=== PATIENT | male | born 1980 | race Native Hawaiian/Other Pacific Islander ===

== ENCOUNTER 2022-04-26 13:01 | Emergency (ER) | payer BC, SELFPAY ==
[2022-04-26 13:08] VITALS: BP 130/83; PULSE 62; TEMP 36.4; O2SAT 99; BMI 27.5
--- NOTE | 2022-04-26 13:35 | ED.GENADULT ---
HPI - General Adult General Time Seen by Provider: 13:35 Date Seen: 04/26/22 Chief complaint: Abdominal Pain Stated complaint: Abdominal pain Time Seen by Provider: 04/26/22 13:34 Source: patient and RN notes reviewed Mode of arrival: ambulatory Limitations: no limitations History of Present Illness HPI narrative: Patient is a 41-year-old male coming in with sudden onset of severe left-sided abdominal pain starting within the last couple hours. The pain was so severe it did cause him to vomit. He was working when it started, no trauma. He has no history of kidney stones. No associated urinary symptoms, no change in stool habits, no diarrhea. Pain is severe. It starts in the left mid abdomen and radiates paraumbilical E. he has no history of prior abdominal surgeries. There has been no fevers or chills. He has not been sick with any cough or cold symptoms. Last ate at 8:00 a.m. this morning. Related Data Home Medications Medication Instructions Recorded Confirmed No Known Home Medications 04/26/22 04/26/22 Allergies Allergy/AdvReac Type Severity Reaction Status Date / Time No Known Drug Allergies Allergy Verified 04/26/22 13:11 Review of Systems Status of ROS: Reports: 10 or more systems reviewed and unremarkable except as noted in History and below PFSH PFS Social History Smoking Status: Never smoker How often do you have a drink containing alcohol: never AUDIT-C Alcohol total score: 0 Non-prescribed substance use: denies use Exam Const: Vital Signs, click to edit/add: Vital Signs - 24 hr 04/26/22 13:08 04/26/22 14:27 Temperature 97.6 F 98.1 F Pulse Rate [Pulse Oximeter] 62 73 Respiratory Rate 16 Blood Pressure [Ri ght Upper Arm] 130/83 116/77 Pulse Oximetry 99 97 Oxygen Delivery Me thod Room Air Room Air Documenting provider has reviewed patient's vital signs: yes Common normals: no apparent distress, average body habitus, oriented x3, no limitations, healthy appearing, alert and well nourished General appearance: cooperative, well kempt and in distress (Seems uncomfortable from the pain, has his eyes closed, hangs on to L abd) moderate HENMT: Common normals: normocephalic, head/scalp atraumatic, hearing grossly normal bilaterally, external nose normal, nasal mucous membranes and turbinates normal, moist oral mucous membranes, oropharynx normal, dentition normal and gingiva normal Head and scalp: normocephalic and atraumatic Nose: external nose normal and nasal mucous membranes and turbinates normal Eye: Common normals: PERRL, EOMs intact bilaterally, conjunctivae normal and no scleral icterus Conjunctiva: conjunctiva(e) normal Pupil: PERRL Neck & C-Spine: Common normals: full ROM, no lymphadenopathy, supple, no meningeal signs, no JVD and thyroid normal Thyroid: thyroid normal Resp: Common normals: normal respiratory effort, no retractions, no use of accessory muscles and clear to auscultation bilaterally Auscultation: clear to auscultation bilaterally Cardio: Common normals: no JVD, regular rate, regular rhythm, S1 normal heart sound, S2 normal heart sound, no gallops, no clicks and no murmurs Rate: regular rate Rhythm: regular rhythm Heart sounds: S1 normal and S2 normal GI: Common normals: Normal to inspection, nondistended, normoactive bowel sounds present, soft to palpation, no hepatosplenomegaly, no masses and no bruits Palpation: soft, tender (Left mid abdomen and periumbilically.) and no hepatosplenomegaly : Common normals: no CVA tenderness Bladder/kidney exam: no CVA tenderness Back & Pelvis: Common normals: no CVA tenderness Extremity: Common normals: normal to inspection, full ROM, normal capillary refill, no joint enlargement, no clubbing, cyanosis or edema, no calf tenderness and no pedal edema Neuro: Raciel Coma Scale: document GCS findings Raciel coma scale eye opening: Spontaneous (4) Saffell coma scale verbal response: Orientated (5) Raciel coma scale motor response: Obey commands (6) Saffell coma scale total score: 15 Common normals: oriented x3 Sensorium/orientation: alert Meningeal signs: no meningeal signs Speech: speech normal Psych: Appearance: well kempt Course Course Hospital Course: We will establish an IV, start IV fluids in given 15 mg IV Toradol and 4 mg IV Zofran for symptom control. Will obtain CT noncontrast as I a suspect urinary etiologies such as kidney stones most likely. We can always reimage with IV contrast if need be. Will get basic metabolic panel and CBC, consider further chemistries better analyzer is supposed to be going down and thus may not be able to get these for hours any ways. We will obtain urinalysis from him. Reevaluation(s) Reevaluation #1: Reviewed with patient normal laboratory workup as well as CT imaging. He states he still feeling it and now points over on the right side of his abdomen. I did have him sit up and lean back down. Seems to be worse with palpation of his abdominal wall. He was working outside yesterday but was inside today. This seems to be more abdominal wall based on a normal workup and my re-evaluation of him. We will send him home with some Toradol from [facility]. Time: 16:43 Vital Signs Vital signs: Initial Vital Signs Temperature 97.6 F 04/26/22 13:08 Temperature Source Temporal Artery Scan 04/26/22 13:08 Pulse Rate 62 04/26/22 13:08 Blood Pressure 130/83 04/26/22 13:08 Blood Pressure Mean 98 04/26/22 13:08 Blood Pressure Position Supine 04/26/22 13:08 Pulse Oximetry 99 04/26/22 13:08 Oxygen Delivery Method 04/26/22 13:08 Vital Signs Temperature 97.6 F 04/26/22 13:08 Pulse Rate 62 04/26/22 13:08 Blood Pressure 130/83 04/26/22 13:08 Pulse Oximetry 99 04/26/22 13:08 Oxygen Delivery Method 04/26/22 13:08 Temperature 98.1 F 04/26/22 14:27 Pulse Rate 73 04/26/22 14:27 Respiratory Rate 16 04/26/22 14:27 Blood Pressure 116/77 04/26/22 14:27 Pulse Oximetry 97 04/26/22 14:27 Oxygen Delivery Method 04/26/22 14:27 Medical Decision Making Lab Data Lab results reviewed: Yes I reviewed the patient's lab results Labs: Lab Results 04/26/22 04/26/22 04/26/22 Range/Units 13:27 13:27 14:16 WBC 8.73 (4.50-11.00) K/uL RBC 5.09 (4.30-5.90) m/uL Hgb 15.9 (13.5-17.5) gm/dL Hct 45.1 (37.0-53.0) % MCV 89 (80-100) fL MCH 31 (26-34) pg MCHC 35 (32-36) gm/dL RDW Coeff of Bret 12.4 (11.5-15.5) % Plt Count 261 (140-440) K/uL Neut % (Auto) 78.9 H (42.0-72.0) % Lymph % (Auto) 14.9 L (20-44) % [place] % (Auto) 4.8 (0.0-11.0) % Eos % (Auto) 0.6 (0.0-7.0) % Baso % (Auto) 0.6 (0.0-3.0) % Neut # (Auto) 6.90 (1.7-7.0) K/uL Lymph # (Auto) 1.30 (0.90-2.90) K/uL [place] # (Auto) 0.40 (0.00-0.90) K/UL Eos # (Auto) 0.05 (0.00-0.50) K/uL Baso # (Auto) 0.05 (0.00-0.30) K/uL Abs Immat Gran (auto) 0.02 (0.00-0.30) K/uL Sodium 137 (135-149) mmol/L Potassium 3.9 (3.6-5.1) mmol/L Chloride 100 (96-114) mmol/L Carbon Dioxide 25 (20-32) mmol/L BUN 21 (5-24) mg/dL Creatinine 1.0 (0.5-1.5) mg/dL Estimated Creat Clear 97.21 Estimated GFR 97 ml/min Glucose 111 (60-115) mg/dL Lactate (0.5-1.9) mmol/L Calcium 9.1 (8.4-10.6) mg/dL Total Bilirubin (0.1-1.5) mg/dL Direct Bilirubin (0.0-0.5) mg/dL AST (12-35) U/L ALT (4-50) U/L Alkaline Phosphatase (40-150) U/L C-Reactive Protein (0.5-1.0) mg/dL Total Protein (6.0-8.3) g/dL Albumin (3.3-5.0) g/dL Lipase (23-300) U/L Urine Color Yellow (Yellow) Urine Appearance Clear (Clear) Urine pH 7.0 (5.0-8.5) Ur Specific [place] 1.025 (1.000-1.030) Urine Protein Negative (Negative) Urine Glucose (UA) Negative (Negative) Urine Ketones 2+ A (Negative) Urine Blood Negative (Negative) Urine Nitrite Negative (Negative) Urine Bilirubin Negative (Negative) Urine Urobilinogen 0.2 (0.2-1.0) Ur Leukocyte Esterase Negative (Negative) Urine RBC 0-2 (0-2) Urine WBC 0-2 (0-5) Urine WBC Clumps None (None) Ur Squamous Epith Cells None (None-Few) Urine Bacteria None (None) 04/26/22 04/26/22 Range/Units 14:55 14:55 WBC (4.50-11.00) K/uL RBC (4.30-5.90) m/uL Hgb (13.5-17.5) gm/dL Hct (37.0-53.0) % MCV (80-100) fL MCH (26-34) pg MCHC (32-36) gm/dL RDW Coeff of Bret (11.5-15.5) % Plt Count (140-440) K/uL Neut % (Auto) (42.0-72.0) % Lymph % (Auto) (20-44) % [place] % (Auto) (0.0-11.0) % Eos % (Auto) (0.0-7.0) % Baso % (Auto) (0.0-3.0) % Neut # (Auto) (1.7-7.0) K/uL Lymph # (Auto) (0.90-2.90) K/uL [place] # (Auto) (0.00-0.90) K/UL Eos # (Auto) (0.00-0.50) K/uL Baso # (Auto) (0.00-0.30) K/uL Abs Immat Gran (auto) (0.00-0.30) K/uL Sodium (135-149) mmol/L Potassium (3.6-5.1) mmol/L Chloride (96-114) mmol/L Carbon Dioxide (20-32) mmol/L BUN (5-24) mg/dL Creatinine (0.5-1.5) mg/dL Estimated Creat Clear Estimated GFR ml/min Glucose (60-115) mg/dL Lactate 0.7 (0.5-1.9) mmol/L Calcium (8.4-10.6) mg/dL Total Bilirubin 0.9 (0.1-1.5) mg/dL Direct Bilirubin 0.2 (0.0-0.5) mg/dL AST 57 H (12-35) U/L ALT 51 H (4-50) U/L Alkaline Phosphatase 85 (40-150) U/L C-Reactive Protein < 0.5 L (0.5-1.0) mg/dL Total Protein 7.4 (6.0-8.3) g/dL Albumin 4.4 (3.3-5.0) g/dL Lipase 67 (23-300) U/L Urine Color (Yellow) Urine Appearance (Clear) Urine pH (5.0-8.5) Ur Specific [place] (1.000-1.030) Urine Protein (Negative) Urine Glucose (UA) (Negative) Urine Ketones (Negative) Urine Blood (Negative) Urine Nitrite (Negative) Urine Bilirubin (Negative) Urine Urobilinogen (0.2-1.0) Ur Leukocyte Esterase (Negative) Urine RBC (0-2) Urine WBC (0-5) Urine WBC Clumps (None) Ur Squamous Epith Cells (None-Few) Urine Bacteria (None) Imaging Data CT scan - abdomen: Attestation: I have reviewed the pertinent imaging results. Radiologist's impression: Patient: LUIS MANUEL MELTON Facility:?[facility] Patient ID:?[id number] Site Patient ID:?[id number]. Site :?[id number] Study:?CT Abdomen/Pelvis WITHOU-04/26/2022 2:19:40 PM Ordering Physician:Sruthi Milton Final Report: INDICATION: Severe left lower quadrant pain. Nausea vomiting. COMPARISON: None TECHNIQUE: CT examination of the abdomen and pelvis was performed without intravenous contrast. Thin section axial images were obtained from the lung bases through the pubic symphysis. Oral contrast was not administered. Please note that all CT scans at this facility use dose modulation, iterative reconstruction, and/or weight-based dosing when appropriate to reduce radiation dose to as low as reasonably achievable. FINDINGS: LUNG BASES: The lung bases as visualized appear normal.The heart size is normal at the lung bases. LIVER/BILIARY SYSTEM:The liver is normal in size and configuration given the lack of intravenous contrast. There is no visible focal mass and there is no intra- or extra hepatic biliary ductal dilatation.The gall bladder appears normal. ADRENALS: Normal non-contrast appearance KIDNEYS, URETERS and BLADDER:The kidneys appear normal given lack of intravenous contrast. No visible mass, calculus or hydronephrosis. The ureters and bladder as visualized appear normal. SPLEEN:Normal non-contrast appearance. PANCREAS: Normal non-contrast appearance. RETROPERITONEUM and MESENTERY: There is no mass, adenopathy or aortic aneurysm. GASTROINTESTINAL SYSTEM: There are areas of colonic wall thickening but this appears as submucosal fat deposition. This is usually not associated with an acute inflammatory process. No surrounding pericolonic inflammatory change. No specific GI cause for left-sided pain. PELVIS: No mass, adenopathy or free fluid. OSSEOUS STRUCTURES and ABDOMINAL WALL: There is an age-appropriate appearance of the osseous structures.No significant abdominal wall defect. OTHER: No free fluid or free air. IMPRESSION: No specific visible cause for pain. Please note that all CT scans at this facility use dose modulation, iterative reconstruction, and/or weight-based dosing when appropriate to reduce radiation dose to as low as reasonably achievable. Dictated by Dillon Mckeon MD @ 04/26/2022 2:40:25 PM (Electronic Signature) Critical Care Time Critical Care Time Critical Care Time: No Discharge Plan Discharge Clinical Impression: Abdominal pain Patient Disposition: Home, Self-Care Condition: Stable Instructions: Abdominal Pain (ED) Additional Instructions: Activity and oral intake as symptoms allow. Can use Tylenol baseline per bottle directions for pain control. Have also given a prescription for Toradol, 10 mg every 6 hours as needed for pain. Can use this as well as Tylenol for extra pain control. If you develops severe abdominal pain again, have any vomiting or fevers associated with abdominal pain, do need to seek re-evaluation. I do wonder if this is more abdominal wall pain for you and was maybe more of muscle contraction/muscle spasm. Drinking plenty of fluids, consider drinking some Gatorade if working outside in the heat as this may help prevent muscular contractions/spasms. Activity Level: Activity as Tolerated Discharge Diet: Regular Prescriptions: No Action No Known Home Medications Follow Up/Referrals: Provider,Not a Local [Primary Care Provider] - Stand Alone Forms: [facility] Info Instructions
--- NOTE | 2022-04-26 13:38 | CRLHL7_ITS ---
For Patients: As a result of the Century Cures Act, medical imaging exams and procedure reports are released immediately into your electronic medical record. You may view this report before your referring provider. If you have questions, please contact your health care provider. INDICATION: Severe left lower quadrant pain. Nausea vomiting. COMPARISON: None TECHNIQUE: CT examination of the abdomen and pelvis was performed without intravenous contrast. Thin section axial images were obtained from the lung bases through the pubic symphysis. Oral contrast was not administered. Please note that all CT scans at this facility use dose modulation, iterative reconstruction, and/or weight-based dosing when appropriate to reduce radiation dose to as low as reasonably achievable. FINDINGS: LUNG BASES: The lung bases as visualized appear normal.The heart size is normal at the lung bases. LIVER/BILIARY SYSTEM:The liver is normal in size and configuration given the lack of intravenous contrast. There is no visible focal mass and there is no intra- or extra hepatic biliary ductal dilatation.The gall bladder appears normal. ADRENALS: Normal non-contrast appearance KIDNEYS, URETERS and BLADDER:The kidneys appear normal given lack of intravenous contrast. No visible mass, calculus or hydronephrosis. The ureters and bladder as visualized appear normal. SPLEEN:Normal non-contrast appearance. PANCREAS: Normal non-contrast appearance. RETROPERITONEUM and MESENTERY: There is no mass, adenopathy or aortic aneurysm. GASTROINTESTINAL SYSTEM: There are areas of colonic wall thickening but this appears as submucosal fat deposition. This is usually not associated with an acute inflammatory process. No surrounding pericolonic inflammatory change. No specific GI cause for left-sided pain. PELVIS: No mass, adenopathy or free fluid. OSSEOUS STRUCTURES and ABDOMINAL WALL: There is an age-appropriate appearance of the osseous structures.No significant abdominal wall defect. OTHER: No free fluid or free air. IMPRESSION: No specific visible cause for pain. Please note that all CT scans at this facility use dose modulation, iterative reconstruction, and/or weight-based dosing when appropriate to reduce radiation dose to as low as reasonably achievable. Dictated by Dillon Mckeon MD @ 04/26/2022 2:40:25 PM (Electronically Signed)
[2022-04-26] MEDS: KETOROLAC 15 MG/ML inj IVP (13:49)
[2022-04-26] MEDS: ONDANSETRON 2 MG/ML inj 4 MG IVP (13:49)
[2022-04-26] MEDS: 0.9 % SODIUM CHLORIDE 1000 ml 1,000 ML 500 ML IV (13:51)
[2022-04-26 13:54] LABS: Basophils Absolute Auto 0.05 K/uL (0.00-0.30); Basophils Percent Auto 0.6 % (0.0-3.0); Eosinophils Absolute Auto 0.05 K/uL (0.00-0.50); Eosinophils Percent Auto 0.6 % (0.0-7.0); Hematocrit 45.1 % (37.0-53.0); Hemoglobin* 15.9 gm/dL (13.5-17.5); Immature Granulocytes Abs Auto 0.02 K/uL (0.00-0.30); Lymphocytes Percent Auto 14.9 % (20-44); Mean Corpuscular HGB Conc 35 gm/dL (32-36); Mean Corpuscular Hemoglobin 31 pg (26-34); Mean Corpuscular Volume 89 fL (80-100); Monocytes Percent Auto 4.8 % (0.0-11.0); Neutrophils Percent Auto 78.9 % (42.0-72.0); Platelet Count* 261 K/uL (140-440); RDW Coefficient of Variation % 12.4 % (11.5-15.5); Red Blood Count 5.09 m/uL (4.30-5.90); White Blood Count* 8.73 K/uL (4.50-11.00)
[2022-04-26 13:55] LABS: Slide Review Reflex No
[2022-04-26 14:14] LABS: Chloride* 100 mmol/L (96-114)
[2022-04-26 14:15] LABS: Potassium* 3.9 mmol/L (3.6-5.1); Sodium* 137 mmol/L (135-149)
[2022-04-26 14:17] LABS: Est. Creatinine Clearance* 97.21; Estimated Glomerular Filt Rate 97 ml/min
[2022-04-26 14:18] LABS: Blood Urea Nitrogen* 21 mg/dL (5-24); Calcium* 9.1 mg/dL (8.4-10.6); Carbon Dioxide* 25 mmol/L (20-32); Glucose* 111 mg/dL (60-115)
[2022-04-26 14:27] VITALS: BP 116/77; PULSE 73; RESP 16; TEMP 36.7; O2SAT 97
[2022-04-26 14:52] LABS: Appearance Urine Clear (Clear); Bilirubin Urine Negative (Negative); Blood Urine Negative (Negative); Color Urine Yellow (Yellow); Glucose Urine Negative (Negative); Ketones Urine 2+ (Negative); Leukocyte Esterase Urine Negative (Negative); Nitrite Urine Negative (Negative); Protein Urine Negative (Negative); Specific Gravity Urine 1.025 (1.000-1.030); Urobilinogen Urine 0.2 (0.2-1.0)
[2022-04-26 15:02] LABS: Lactate* 0.7 mmol/L (0.5-1.9)
[2022-04-26 15:04] LABS: RBC Urine 0-2 (0-2); WBC Urine 0-2 (0-5)
[2022-04-26 15:18] LABS: Albumin* 4.4 g/dL (3.3-5.0)
[2022-04-26 15:21] LABS: Bilirubin Direct* 0.2 mg/dL (0.0-0.5); Bilirubin Total* 0.9 mg/dL (0.1-1.5)
[2022-04-26 15:22] LABS: Alanine Aminotransferase* 51 U/L (4-50); Alkaline Phosphatase* 85 U/L (40-150); Aspartate Amino Transferase* 57 U/L (12-35); Lipase* 67 U/L (23-300); Total Protein* 7.4 g/dL (6.0-8.3)
[2022-04-26 15:26] LABS: C Reactive Protein* < 0.5 mg/dL (0.5-1.0)
== END 2022-04-26 17:01 | disposition home or self-care (01) ==
PROVIDERS: Emergency Provider Family Medicine
DX: R10.9 Unspecified abdominal pain (principal)
CPT/HCPCS: 36415; 74176; 80048; 80076; 81001; 83605; 83690; 85025; 86140; 96374; 96375; 99284; J1885; J2405; J7030

== ENCOUNTER 2022-08-29 06:59 | Outpatient (CLI) | payer BC, SELFPAY ==
[2022-08-29 09:34] LABS: Cholesterol* 202 mg/dL (90-199)
[2022-08-29 09:35] LABS: HDL Cholesterol* 39 mg/dL (>=40); LDL Cholesterol Calculated 120 mg/dL (<100); Triglycerides* 216 mg/dL (40-149)
== END 2022-08-29 07:00 | disposition home or self-care (01) ==
PROVIDERS: Visit Provider Family Medicine
DX: Z13.6 Encounter for screening for cardiovascular disorders (principal)
CPT/HCPCS: 80053; 80061

== ENCOUNTER 2022-09-18 08:43 | Outpatient (CLI) | payer BC, SELFPAY ==
[2022-09-18 10:43] LABS: Aspartate Amino Transferase* 27 U/L (12-35)
[2022-09-18 10:44] LABS: Alanine Aminotransferase* 32 U/L (4-50)
== END 2022-09-18 08:44 | disposition home or self-care (01) ==
PROVIDERS: Visit Provider Family Medicine
DX: R79.89 Other specified abnormal findings of blood chemistry (principal)
CPT/HCPCS: 84450; 84460

== ENCOUNTER 2023-05-06 05:21 | Day surgery (SDC) | payer SELFPAY ==
[2023-05-06] VITALS (19 sets, daily range): BP systolic 100–129; BP diastolic 62–92; PULSE 62–84; RESP 14–18; TEMP 36.1–37.3; O2SAT 91–98; BMI 28.8; BMI 29.0
[2023-05-06] MEDS: ONDANSETRON 2 MG/ML inj 4 MG IVP (05:45)
[2023-05-06] MEDS: KETOROLAC 15 MG/ML inj IVP (05:45)
--- NOTE | 2023-05-06 05:47 | ED.GENADULT ---
HPI - General Adult General Chief complaint: Abdominal Pain Stated complaint: abdominal pain Time Seen by Provider: 05/06/23 05:26 Source: patient Mode of arrival: ambulatory Limitations: no limitations History of Present Illness HPI narrative: 42-year-old male with no chronic medical problems, known to me from his [employer] business presents with right lower quadrant abdominal pain for the past couple of hours. Pain is achy and constant. No trauma or injury. Pain is located in the right lower quadrant, does not radiate. No dysuria, no back pain. No rash. Last bowel movement was yesterday, formed and normal. No bloody stools. Did vomit x1 prior to coming to ED. he thinks that he may have had kidney stones 4 months ago when he was seen in the ED. review of the records shows that he was evaluated 1 year ago, had CT for suspected kidney stone but was found to have no etiology. Abdominal wall pain with suspected based on occupational hazards. He denies any new sexual partners or risk factors for STDs. No fever. No other systemic symptoms. Did not try taking any medications prior to coming to ED. no prior history of abdominal surgeries or obstructions. Past medical history notable for anxiety, takes Lexapro with good results. Rare alcohol, does not smoke. No pertinent travel. ROS notable for the right lower quadrant abdominal pain as described above only, otherwise denies times 12 systems. Related Data Home Medications Medication Instructions Recorded Confirmed No Known Home Medications 05/06/23 05/06/23 Allergies Allergy/AdvReac Type Severity Reaction Status Date / Time No Known Drug Allergies Allergy Verified 05/06/23 07:25 [facility] Social History Smoking Status: Never smoker How often do you have a drink containing alcohol: never AUDIT-C Alcohol total score: 0 Non-prescribed substance use: denies use Little interest or pleasure in doing things: several days Feeling down, depressed, or hopeless: several days Exam Const: Vital Signs, click to edit/add: Vital Signs - 24 hr 05/06/23 05:25 05/06/23 05:45 Temperature 98.1 F 98.1 F Pulse Rate [Right Pulse Oximeter] 74 Respiratory Rate 18 Blood Pressure [Ri ght Upper Arm] 119/81 Pulse Oximetry 98 Oxygen Delivery Me thod Room Air Documenting provider has reviewed patient's vital signs: yes Common normals: no apparent distress General appearance: cooperative HENMT: Common normals: normocephalic Head and scalp: normocephalic Face and sinus: normal facial exam Mouth: oral and palatal mucosa normal Eye: Common normals: conjunctivae normal General eye: normal appearance of both eyes Conjunctiva: conjunctiva(e) normal Neck & C-Spine: Common normals: no lymphadenopathy Resp: Common normals: normal respiratory effort, no use of accessory muscles and clear to auscultation bilaterally Effort & inspection: able to speak in complete sentences Auscultation: clear to auscultation bilaterally Cardio: Common normals: regular rate, regular rhythm, S1 normal heart sound, S2 normal heart sound and no murmurs Rate: regular rate Rhythm: regular rhythm Heart sounds: S1 normal and S2 normal GI: Common normals: Normal to inspection, nondistended, normoactive bowel sounds present and soft to palpation Palpation: soft Other: Tender to right lower quadrant with no rebound tenderness or guarding. : Common normals: no CVA tenderness Bladder/kidney exam: no CVA tenderness Back & Pelvis: Common normals: no CVA tenderness and thoracic and lumbar spine normal to inspection Extremity: Common normals: normal capillary refill General: normal exam except as noted Neuro: Speech: speech normal Gait (neuro): normal gait Motor exam: no movement abnormalities noted Psych: Activity/motor behavior: appropriate eye contact Mood and affect: euthymic mood Insight: insight good Judgement: judgment good Skin: Common normals: no rashes or lesions noted General skin exam: no rashes or lesions noted Course Course ED Course: Differential diagnosis including kidney stone, urinary infection, appendicitis, pancreatitis, colitis, musculoskeletal etiology, shingles, among others. Will start with urinalysis, most suspicious for appendicitis. Basic labs for intra-abdominal and generalized sources. Anticipate CT scan, based on urinalysis will decide with or without contrast dye. Will start with Toradol 15 mg IV x1 with Zofran and IV saline lock. Reevaluation(s) Time of Reevaluation #1: 07:53 Reevaluation #1: Improvement of pain with Toradol. Reviewed CT findings of appendicitis with patient. Call made to Dr. Grace, surgeon on-call. She is in a procedure but the nurse will pass along the message. Will start IV fluids and make the patient NPO for planned appendectomy. Reevaluation #2: Spoke with surgeon on-call. She recommends starting Zosyn. Planning for surgery around noon. Patient will be made NPO. Bolus LR, LR maintenance after. Passing along care to incoming day shift partner Vital Signs Vital signs: Initial Vital Signs Temperature 98.1 F 05/06/23 05:25 Temperature Source Temporal Artery Scan 05/06/23 05:25 Pulse Rate 74 05/06/23 05:25 Respiratory Rate 18 05/06/23 05:25 Blood Pressure 119/81 05/06/23 05:25 Blood Pressure Mean 93 05/06/23 05:25 Blood Pressure Position Sitting 05/06/23 05:25 Pulse Oximetry 98 05/06/23 05:25 Oxygen Delivery Method Room Air 05/06/23 05:25 Vital Signs Temperature 98.1 F 05/06/23 05:25 Pulse Rate 74 05/06/23 05:25 Respiratory Rate 18 05/06/23 05:25 Blood Pressure 119/81 05/06/23 05:25 Pulse Oximetry 98 05/06/23 05:25 Oxygen Delivery Method Room Air 05/06/23 05:25 Temperature 98.1 F 05/06/23 05:45 Pulse Rate 74 05/06/23 05:25 Respiratory Rate 18 05/06/23 05:25 Blood Pressure 119/81 05/06/23 05:25 Pulse Oximetry 98 05/06/23 05:25 Oxygen Delivery Method Room Air 05/06/23 05:25 Medical Decision Making Lab Data Lab results reviewed: Yes I reviewed the patient's lab results Lab results narrative: Mild leukocytosis, normal CRP. Labs: Lab Results 05/06/23 05/06/23 Range/Units 05:43 05:45 WBC 13.14 H (4.50-11.00) K/uL RBC 5.21 (4.30-5.90) m/uL Hgb 16.0 (13.5-17.5) gm/dL Hct 46.4 (37.0-53.0) % MCV 89 (80-100) fL MCH 31 (26-34) pg MCHC 35 (32-36) gm/dL RDW Coeff of Bret 12.6 (11.5-15.5) % Plt Count 231 (140-440) K/uL Neut % (Auto) 80.4 H (42.0-72.0) % Lymph % (Auto) 13.9 L (20-44) % [place] % (Auto) 4.0 (0.0-11.0) % Eos % (Auto) 1.3 (0.0-7.0) % Baso % (Auto) 0.2 (0.0-3.0) % Neut # (Auto) 10.60 H (1.7-7.0) K/uL Lymph # (Auto) 1.80 (0.90-2.90) K/uL [place] # (Auto) 0.50 (0.00-0.90) K/UL Eos # (Auto) 0.20 (0.00-0.50) K/uL Baso # (Auto) 0.00 (0.00-0.30) K/uL Abs Immat Gran (auto) 0.00 (0.00-0.30) K/uL Imm/Tot Granulo (auto) 0.2 % Sodium 137 (135-149) mmol/L Potassium 3.9 (3.6-5.1) mmol/L Chloride 105 (96-114) mmol/L Carbon Dioxide 25 (20-32) mmol/L Anion Gap 7 (7-15) mEq/L BUN 21 (5-24) mg/dL Creatinine 1.0 (0.5-1.5) mg/dL Estimated Creat Clear 96.23 Estimated GFR 96 ml/min Glucose 117 H (60-115) mg/dL Lactate 1.9 (0.5-1.9) mmol/L Calcium 9.2 (8.4-10.6) mg/dL Total Bilirubin 0.8 (0.1-1.5) mg/dL AST 36 H (12-35) U/L ALT 38 (4-50) U/L Alkaline Phosphatase 76 (40-150) U/L C-Reactive Protein < 0.5 L (0.5-1.0) mg/dL Total Protein 7.7 (6.0-8.3) g/dL Albumin 4.4 (3.3-5.0) g/dL Lipase 121 (23-300) U/L Urine Color Yellow (Yellow) Urine Appearance Clear (Clear) Urine pH 6.0 (5.0-8.5) Ur Specific [place] >= 1.030 (1.000-1.030) Urine Protein Negative (Negative) Urine Glucose (UA) Negative (Negative) Urine Ketones Negative (Negative) Urine Blood Negative (Negative) Urine Nitrite Negative (Negative) Urine Bilirubin Negative (Negative) Urine Urobilinogen 0.2 (0.2-1.0) Ur Leukocyte Esterase Negative (Negative) Imaging Data CT scan - abdomen: Attestation: I have reviewed the pertinent imaging results. My impression: Early appendicitis with no free air or abscess Radiologist's impression: IMPRESSION: Acute uncomplicated appendicitis. Please note that all CT scans at this facility use dose modulation, iterative reconstruction, and/or weight-based dosing when appropriate to reduce radiation dose to as low as reasonably achievable. Discharge Plan Discharge Clinical Impression: Acute appendicitis Patient Disposition: Admitted As Inpatient
[2023-05-06 05:52] LABS: Lactate* 1.9 mmol/L (0.5-1.9)
[2023-05-06 05:54] LABS: Basophils Percent Auto 0.2 % (0.0-3.0); Eosinophils Percent Auto 1.3 % (0.0-7.0); Hematocrit 46.4 % (37.0-53.0); Immature Granulocytes Pct Auto 0.2 %; Lymphocytes Percent Auto 13.9 % (20-44); Mean Corpuscular HGB Conc 35 gm/dL (32-36); Mean Corpuscular Hemoglobin 31 pg (26-34); Mean Corpuscular Volume 89 fL (80-100); Neutrophils Percent Auto 80.4 % (42.0-72.0); Platelet Count* 231 K/uL (140-440); RDW Coefficient of Variation % 12.6 % (11.5-15.5); Red Blood Count 5.21 m/uL (4.30-5.90); White Blood Count* 13.14 K/uL (4.50-11.00)
[2023-05-06 05:57] LABS: Slide Review Reflex No
[2023-05-06 06:08] LABS: Albumin* 4.4 g/dL (3.3-5.0); Chloride* 105 mmol/L (96-114); Sodium* 137 mmol/L (135-149)
[2023-05-06 06:09] LABS: Potassium* 3.9 mmol/L (3.6-5.1)
[2023-05-06 06:11] LABS: Anion Gap 7 mEq/L (7-15); Carbon Dioxide* 25 mmol/L (20-32); Est. Creatinine Clearance* 96.23; Estimated Glomerular Filt Rate 96 ml/min
[2023-05-06 06:12] LABS: Alanine Aminotransferase* 38 U/L (4-50); Alkaline Phosphatase* 76 U/L (40-150); Aspartate Amino Transferase* 36 U/L (12-35); Bilirubin Total* 0.8 mg/dL (0.1-1.5); Blood Urea Nitrogen* 21 mg/dL (5-24); Calcium* 9.2 mg/dL (8.4-10.6); Glucose* 117 mg/dL (60-115); Lipase* 121 U/L (23-300); Total Protein* 7.7 g/dL (6.0-8.3)
[2023-05-06 06:17] LABS: Appearance Urine Clear (Clear); Bilirubin Urine Negative (Negative); Blood Urine Negative (Negative); Color Urine Yellow (Yellow); Glucose Urine Negative (Negative); Ketones Urine Negative (Negative); Leukocyte Esterase Urine Negative (Negative); Nitrite Urine Negative (Negative); Protein Urine Negative (Negative); Specific Gravity Urine >= 1.030 (1.000-1.030); Urobilinogen Urine 0.2 (0.2-1.0)
[2023-05-06 06:17] LABS: C Reactive Protein* < 0.5 mg/dL (0.5-1.0)
--- NOTE | 2023-05-06 06:21 | CRLHL7_ITS ---
For Patients: As a result of the Century Cures Act, medical imaging exams and procedure reports are released immediately into your electronic medical record. You may view this report before your referring provider. If you have questions, please contact your health care provider. INDICATION: Right lower quadrant pain. TECHNIQUE: CT abdomen and pelvis acquired with 95 cc Isovue 370 IV contrast. COMPARISON: 04/26/2022. FINDINGS: Lower chest: Normal. Liver: Normal. Normal in size and attenuation. No suspicious masses. Gallbladder and bile ducts: Normal. No stones or inflammation. No biliary dilatation. Pancreas: Normal. No mass or inflammation. Spleen: Normal. Normal in size. No masses. Adrenal glands: Normal. No nodules. Kidneys: Normal. No suspicious masses, stones, or hydronephrosis. GI tract: The appendix is mildly dilated, about 1 centimeter. The appendix is fluid filled. The wall is thin but hyper enhancing. No discontinuity. Mild adjacent inflammatory change. No adjacent fluid/phlegmon/abscess. No calcified appendicolith. The remainder of the bowel is normal in appearance. No dilated segments. No unusual wall thickening or wall enhancement. There is a small stool burden. No free air. Vasculature: Abdominal aorta is normal in caliber. Mesenteric arteries are patent. Lymph nodes: No lymphadenopathy. Peritoneum/Abdominal Wall: Normal. No mass or infiltration. No free air or free fluid. Pelvis: Normal. No mass. Bones: Normal. IMPRESSION: Acute uncomplicated appendicitis. Please note that all CT scans at this facility use dose modulation, iterative reconstruction, and/or weight-based dosing when appropriate to reduce radiation dose to as low as reasonably achievable. Dictated by Yuliana Rios MD @ 05/06/2023 7:41:05 AM (Electronically Signed)
[2023-05-06] MEDS: 0.9 % SODIUM CHLORIDE 1000 ml 1,000 ML IV (08:00)
[2023-05-06] MEDS: LACTATED RINGERS 1000 ML 1,000 ML IV (08:21)
[2023-05-06] MEDS: PIPERACILLIN/TAZOBACTAM 3.375 GM in 0.9 % SODIUM CHLORIDE Mini-bag 100 ML IVPB (08:22)
[2023-05-06] MEDS: MORPHINE 4 MG/ML INJ IVP (08:57)
--- NOTE | 2023-05-06 09:11 | ED.NURSE ---
Transferred to [facility] room 9. Report given to CHUCK George. All belongings sent with patient.
--- NOTE | 2023-05-06 09:48 | PM.GSCN ---
History of Present Illness Consult details Date Seen: 05/06/23 Consult date: 05/06/23 Narrative: Patient is an otherwise healthy 42-year-old male who presented to the emergency department with right lower quadrant abdominal pain. He states that he woke up with this pain around 4:00 a.m. this morning. The pain was severe enough that it prompted him to come into the emergency department. He does report a decrease in appetite, no associated nausea or vomiting. Denies any diarrhea or constipation. No fevers at home. He does state that he had pain similar to this about 4 months ago. He presented to the emergency department at that time with workup, including CT scan being negative. He has never had abdominal surgery before. Review of Systems Status of ROS: Reports: 6 or more systems reviewed and unremarkable except as noted in History and below [facility] Social History Smoking Status: Never smoker How often do you have a drink containing alcohol: never AUDIT-C Alcohol total score: 0 Non-prescribed substance use: denies use Little interest or pleasure in doing things: several days Feeling down, depressed, or hopeless: several days Meds Home Medications and Allergies Home Medications Medication Instructions Recorded Confirmed Type No Known Home Medications 05/06/23 05/06/23 History Allergies Allergy/AdvReac Type Severity Reaction Status Date / Time No Known Drug Allergies Allergy Verified 05/06/23 07:25 Exam Narrative: Exam Narrative: General: Alert and oriented, no acute distress. Nontoxic in appearance. Respiratory: Equal breath rise bilaterally, maintained on room air CV: Regular rhythm and rate, well perfused abdomen: Soft, tender to palpation right lower quadrant with some guarding, no rebound. No significant distention. Const: Vital Signs, click to edit/add: Vital Signs - 24 hr 05/06/23 05:25 05/06/23 05:45 05/06/23 06:21 Temperature 98.1 F 98.1 F Pulse Rate [Right Pulse Oximeter] 74 62 Respiratory Rate 18 18 Blood Pressure [Ri ght Upper Arm] 119/81 113/62 Pulse Oximetry 98 94 Oxygen Delivery Me thod Room Air Room Air 05/06/23 07:00 05/06/23 09:14 Temperature Pulse Rate [Right Pulse Oximeter] 65 84 Respiratory Rate 18 18 Blood Pressure [Ri ght Upper Arm] 100/62 121/69 Pulse Oximetry 95 97 Oxygen Delivery Me thod Room Air Room Air Results Labs Labs: Abnormal lab results 05/06/23 Range/Units 05:43 WBC 13.14 H (4.50-11.00) K/uL Neut % (Auto) 80.4 H (42.0-72.0) % Lymph % (Auto) 13.9 L (20-44) % Neut # (Auto) 10.60 H (1.7-7.0) K/uL Glucose 117 H (60-115) mg/dL AST 36 H (12-35) U/L C-Reactive Protein < 0.5 L (0.5-1.0) mg/dL Diabetes panel 05/06/23 Range/Units 05:43 Sodium 137 (135-149) mmol/L Potassium 3.9 (3.6-5.1) mmol/L Chloride 105 (96-114) mmol/L Carbon Dioxide 25 (20-32) mmol/L BUN 21 (5-24) mg/dL Creatinine 1.0 (0.5-1.5) mg/dL Glucose 117 H (60-115) mg/dL Calcium 9.2 (8.4-10.6) mg/dL AST 36 H (12-35) U/L ALT 38 (4-50) U/L Alkaline Phosphatase 76 (40-150) U/L Total Protein 7.7 (6.0-8.3) g/dL Albumin 4.4 (3.3-5.0) g/dL Calcium panel 05/06/23 Range/Units 05:43 Calcium 9.2 (8.4-10.6) mg/dL Albumin 4.4 (3.3-5.0) g/dL Pituitary panel 05/06/23 Range/Units 05:43 Sodium 137 (135-149) mmol/L Potassium 3.9 (3.6-5.1) mmol/L Chloride 105 (96-114) mmol/L Carbon Dioxide 25 (20-32) mmol/L BUN 21 (5-24) mg/dL Creatinine 1.0 (0.5-1.5) mg/dL Glucose 117 H (60-115) mg/dL Calcium 9.2 (8.4-10.6) mg/dL Adrenal panel 05/06/23 Range/Units 05:43 Sodium 137 (135-149) mmol/L Potassium 3.9 (3.6-5.1) mmol/L Chloride 105 (96-114) mmol/L Carbon Dioxide 25 (20-32) mmol/L BUN 21 (5-24) mg/dL Creatinine 1.0 (0.5-1.5) mg/dL Glucose 117 H (60-115) mg/dL Calcium 9.2 (8.4-10.6) mg/dL Total Bilirubin 0.8 (0.1-1.5) mg/dL AST 36 H (12-35) U/L ALT 38 (4-50) U/L Alkaline Phosphatase 76 (40-150) U/L Total Protein 7.7 (6.0-8.3) g/dL Albumin 4.4 (3.3-5.0) g/dL All other labs normal. Imaging Abdomen CT scan report/results: report reviewed and image reviewed Assessment and Plan Assessment and plan (1) Acute appendicitis: Status: Acute Plan The patient presented with a history, exam and imaging findings consistent with acute appendicitis. I discussed the treatment options with the patient including non-surgical and surgical options. I recommended laparoscopic appendectomy. The risks of surgery were reviewed with the patient including the risks of bleeding, post-operative wound or intra-abdominal infection, injury to abdominal structures and possible conversion to an open operation. We also discussed anesthetic complications including [place], stroke, respiratory failure and blood clots. The patient voiced an understanding of our conversation, had the opportunity to ask questions, agreed to accept the risks of surgery and asked that we proceed with surgery. - OR for laparoscopic appendectomy
[2023-05-06] MEDS: LACTATED RINGERS 1000 ML 1,000 ML 125 ML IV (10:10)
--- NOTE | 2023-05-06 10:10 | SUR.PREOP ---
IV STARTED IN ED. HAD 800CC REMAINING WHEN HE ARRIVED. NO FLUIDS DOCUMENTED IN ED
[2023-05-06] MEDS: HYDROmorphone 0.5 mg/0.5 ml inj IVP (11:12)
--- NOTE | 2023-05-06 11:36 | W.ANESCHARGE ---
Anesthesia Charges Start Date/Time Anesthesia Start Date: 05/06/23 Anesthesia Start Time: 12:57 Stop Date/Time Anesthesia Stop Date: 05/06/23 Anesthesia Stop Time: 14:00
[2023-05-06] MEDS: BUPIVACAINE 0.25% 30 ML INJECTION (13:39)
--- NOTE | 2023-05-06 13:52 | PM.GSPRC ---
Operative Note Pre-op diagnosis: Acute appendicitis Post-op diagnosis: same, non perforated Type of Procedure: laparoscopic appendectomy Indications: Patient is a 42-year-old male who presented to the emergency department with right lower quadrant abdominal pain. Clinical workup and exam consistent with acute appendicitis. Recommendations to proceed with laparoscopic appendectomy. Risks and benefits of operative intervention were discussed at length with the patient. Risks included but was not limited to: Bleeding, infection, risk of damage to surrounding structures, possible need for additional procedures, possible need to convert to an open operation and postoperative complications such as pneumonia, pulmonary emboli or [place]. All questions and concerns were addressed with the patient agreeing to proceed. Procedure Description: After discussing the risks and benefits of the procedure, the patient signed informed consent.? The operative site was marked and the patient was brought to the operating room and placed on the operating table in supine position.? Care was taken to pad the patient's pressure points.?? The patient was then intubated by anesthesia.?? The operative site was then prepped and draped in the usual sterile fashion.? A time-out was then performed. Entrance to the abdomen was obtained via a 5 mm optical trocar in the left upper quadrant. The abdomen was insufflated and briefly surveyed for any signs of injury. There were none. A 12 mm port was placed lateral to the umbilicus as well as a 5 mm port in the left lower quadrant under direct vision. The patient was then placed in Trendelenburg position with the right side up. The small bowel was gently moved out of the way and the appendix was in view. A small amount of dissection was necessary to free the appendix from the surrounding pelvic attachments. This was grasped and pulled into view. A mesenteric window was created between the base of the appendix and the mesoappendix. A 45 mm Endo-ESPERANZA purple load stapler was then used to transect the appendix at its base. A 45 mm vascular load stapler was then used to take the mesoappendix. The staple lines were inspected for bleeding. There was none. The appendix was then removed from the abdomen using an Endo-Catch bag. The specimen was sent to pathology. The 12 mm port site fascia was closed with 0 Vicryl via the Kimani Andressa device. All other ports were removed under direct visualization. The skin was then closed with absorbable subcuticular suture. Sterile dressings were then applied. Instrument sponge and needle counts were correct at the end of the case. The patient was then woken and transported to the PACU in stable condition. Findings: acute, non perforated appendicitis Anesthesia: ARELIA Surgeon: Bere Grace MD Estimated blood loss (mL): 5 Specimen: Appendix Condition: stable Disposition: PACU Date of procedure: 05/06/23
[2023-05-06] MEDS: LACTATED RINGERS 1000 ML 1,000 ML 35 ML IV (14:12)
--- NOTE | 2023-05-06 14:42 | W.ANESCHARGE ---
Anesthesia Charges Start Date/Time Anesthesia Start Date: 05/06/23 Anesthesia Start Time: 12:57 Stop Date/Time Anesthesia Stop Date: 05/06/23 Anesthesia Stop Time: 14:00
== END 2023-05-06 16:30 | disposition home or self-care (01) ==
LOC: ED 08:11 → SS 09:07
PROVIDERS: Emergency Provider Family Medicine; PCP Family Medicine; Visit Provider Surgery
PROC: 0DTJ4ZZ Resection of Appendix, Percutaneous Endoscopic Approach (ICD-10-PCS; CPT 44970; principal; 2023-05-06 11:15)
DX: K35.80 Unspecified acute appendicitis (principal)
CPT/HCPCS: 44970; 36415; 74177; 80053; 81003; 83605; 83690; 840; 85025; 86140; 88304; 99284; J0665; J1100; J1170; J1885; J2250; J2270; J2405; J2543; J2704; J3010; J3490; J7030; J7120; Q9967